=== PATIENT | male | born 1965 | race Caucasian/White ===

== ENCOUNTER 2021-04-19 10:10 | Emergency (ER) | payer BC ==
[~2021-04-19] VITALS: Ht 177.8 cm; Wt 125.5 kg
[2021-04-19 10:24] VITALS: BP 156/95
--- NOTE | 2021-04-19 11:22 | REP ---
INDICATION: chest pain. COMPARISON: None. TECHNIQUE: Single portable AP view of the chest was performed. FINDINGS: There is no acute infiltrate or pulmonary edema. Lungs are clear. The heart is not significantly enlarged. The mediastinal silhouette is unremarkable. The visualized osseous structures are intact. IMPRESSION: No acute pulmonary disease. <Electronically signed by Rolando Benson > 04/19/21 [id number]
[2021-04-19 11:34] LABS: BASO # 0.1 10^3/uL (0.0-0.2); BASO % 0.8 % (0.0-1.0); EOS # 0.1 10^3/uL (0.0-0.5); EOS % 2.4 % (0.0-3.0); HEMATOCRIT 45.5 % (42.0-52.0); HEMOGLOBIN 15.2 g/dl (13.5-17.5); LYMPH % 16.5 % (24.0-44.0); MEAN CORPUSCULAR HEMOGLOBIN 30.3 pg (27.0-33.0); MEAN CORPUSCULAR HGB CONC 33.4 g/dl (32.0-36.5); MEAN CORPUSCULAR VOLUME 90.8 fl (80.0-96.0); MONO # 0.4 10^3/uL (0.0-0.8); MONO % 7.1 % (2.0-8.0); NEUTROPHILS # 4.3 10^3/uL (1.5-8.5); NEUTROPHILS % 72.7 % (36.0-66.0); PLATELET COUNT, AUTOMATED 296 10^3/uL (150-450); RED BLOOD COUNT 5.01 10^6/uL (4.30-6.10); WHITE BLOOD COUNT 5.9 10^3/uL (4.0-10.0)
[2021-04-19 12:14] LABS: ALBUMIN 3.8 GM/DL (3.2-5.2); ALT/SGPT 59 U/L (12-78); BILIRUBIN,DIRECT < 0.1 MG/DL (0.0-0.2); BILIRUBIN,TOTAL 0.3 MG/DL (0.2-1.0); BLOOD UREA NITROGEN 16 MG/DL (7-18); CALCIUM LEVEL 9.3 MG/DL (8.5-10.1); CARBON DIOXIDE LEVEL 26 MEQ/L (21-32); CHLORIDE LEVEL 107 MEQ/L (98-107); CK-MB VALUE MASS < 1.0 NG/ML (<3.6); CPK CREATINE PHOSPHOKINASE 150 U/L (39-308); CREATININE FOR GFR 0.98 MG/DL (0.70-1.30); GLOMERULAR FILTRATION RATE > 60.0 (>56); GLUCOSE, FASTING 107 MG/DL (70-100); LIPASE 91 U/L (73-393); MB/CK RELATIVE INDEX 0.67 (< OR =4); POTASSIUM SERUM 4.8 MEQ/L (3.5-5.1); SODIUM LEVEL 139 MEQ/L (136-145); TOTAL PROTEIN 7.7 GM/DL (6.4-8.2); TROPONIN I < 0.02 NG/ML (< 0.10)
[2021-04-19] MEDS ORDERED: CLAR10CA3 PO (12:36)
[2021-04-19] MEDS ORDERED: LISI10TA22 (12:36)
[2021-04-19] MEDS ORDERED: OMEP-218 (12:36)
[2021-04-19] MEDS ORDERED: METO1TAB7 (12:36)
[2021-04-19] MEDS ORDERED: ISOVUE-370 76% 100ML VIAL As Ordered ONE (12:50)
--- NOTE | 2021-04-19 13:33 | REP ---
INDICATION: LLQ pain. Patient gives a history of prior appendectomy and cholecystectomy. COMPARISON: None. TECHNIQUE: Helical scanning was acquired and 4 mm axial images are re-formatted. Coronal and sagittal MPR images were generated and reviewed. The contrast enhancement dose is 100 mL of intravenous Isovue 370. 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 There are clips in right upper quadrant. On axial CT images, the lung bases are clear. There is no evidence of pleural effusion or upper abdominal ascites. The liver and spleen are normal in size and homogeneous in texture. There is mild to moderate diffuse fatty infiltration of the liver. No focal liver lesion is seen. No biliary ductal dilation is observed. Clips are noted in the gallbladder fossa. Normal adrenal glands are seen. There is a 2.1 cm cyst in the right kidney upper pole and smaller sub cm cysts are seen in each lower pole. No renal mass or hydronephrosis is seen. No calculus is observed. No abnormality is noted in the pancreas. Small and large bowel loops are normal in the abdomen and pelvis. There are dystrophic calcifications in the prostate gland. There is no CT evidence of diverticulosis or diverticulitis. Urinary bladder and seminal vesicles are unremarkable. There is a left inguinal hernia trans Bray abdominal fat. There is an umbilical hernia trans Bray abdominal fat. No other abdominal wall defect is seen. Bone window settings show no bony destructive lesion. IMPRESSION: Left inguinal hernia transmits abdominal fat. Small umbilical hernia transmits abdominal fat. Fatty infiltration of the liver is seen. Post cholecystectomy and appendectomy. Small cortical renal cysts. Dystrophic calcifications in the prostate gland. Otherwise no acute abnormality. <Electronically signed by David Santoyo > 04/19/21 [id number]
--- NOTE | 2021-04-20 20:40 | ECGEPIP ---
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
== END 2021-04-19 14:37 | disposition home or self-care (01) ==
LOC: EDSEX 10:10 → M ED 10:10 → EDBD 10:10 → M ED 14:37
DX: K40.90 Unilateral inguinal hernia, without obstruction or gangrene, not specified as recurrent (principal); K42.9 Umbilical hernia without obstruction or gangrene; K76.0 Fatty (change of) liver, not elsewhere classified; N28.1 Cyst of kidney, acquired; N42.0 Calculus of prostate; I10 Essential (primary) hypertension; K21.9 Gastro-esophageal reflux disease without esophagitis; E78.5 Hyperlipidemia, unspecified; E66.9 Obesity, unspecified
CPT/HCPCS: 36415; 71045; 74177; 80048; 80076; 82550; 82553; 83690; 84484; 85025; 93005; 93041; 99284; Q9967